=== PATIENT | female | born 1995 | race Caucasian/White ===

== ENCOUNTER 2019-09-18 16:49 | Emergency (ER) | payer OTHER ==
[~2019-09-18] VITALS: Ht 157.5 cm; Wt 81.6 kg
[2019-09-18 16:50] VITALS: BP 108/60
[2019-09-18] MEDS ORDERED: PREN29TA4 PO (17:00)
[2019-09-18] MEDS ORDERED: ACET-683 PO (17:00)
[2019-09-19] MEDS ORDERED: PERC5TAB12 PO (11:46)
== END 2019-09-18 18:43 | disposition left against medical advice (07) ==
LOC: M ED 16:49
DX: Z53.21 Procedure and treatment not carried out due to patient leaving prior to being seen by health care provider (principal)

== ENCOUNTER 2019-09-19 10:10 | Emergency (ER) | payer OTHER ==
[~2019-09-19] VITALS: Ht 157.5 cm; Wt 81.1 kg
[~2019-09-19 10:10] MED LIST: ACET-683 PO; PREN29TA4 PO
[2019-09-19] MEDS ORDERED: PERC5TAB12 PO (11:46)
[2019-09-19 11:49] VITALS: BP 124/59
== END 2019-09-19 11:50 | disposition home or self-care (01) ==
LOC: M ED 10:10
DX: K02.9 Dental caries, unspecified (principal); Z33.1 Pregnant state, incidental

== ENCOUNTER 2019-09-23 15:13 | Inpatient (IN) | payer OTHER ==
[~2019-09-23] VITALS: Ht 157.5 cm; Wt 82.0 kg
[~2019-09-23 15:13] MED LIST changes: +PERC5TAB12 PO
[2019-09-23 15:32] VITALS: BP 109/60
[2019-09-23] MEDS ORDERED: LACTATED RINGER'S 1000 ML IV STA (16:37)
[2019-09-23] MEDS ORDERED: miSOPROStol 25 MCG 1/4 TAB (S0191) PV ONE (16:45)
--- NOTE | 2019-09-23 16:56 | HPEPDOC ---
Obstetrical History & Physical General Date of Admission Sep 23, 2019 at 15:13 History of Present Illness S: Bree is a 23yo at 40+0wks gestation, EDC 23SEP2019 by LMP/1TUS. She presents to LND for scheduled elective IOL. She reports +FM and BH ctx, denies LOF/VB. She is here today with her spouse and denies any concerns today. complicated by excessive weight gain (40lbs). History of anxiety and PPD (no current meds). 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 pertinent history Past Medical History Medical History Overweight Surgical History: Denies/None Family History Significant Family History: No pertinent family hx Social History Marital Status: Family situation: Spouse/partner home Psychosocial History: Anxiety, Depression * Smoker: non-smoker Alcohol: Denies Drugs: denies Abuse Violence Screening Have you been hit/kicked/slapp: No Have you been sexually assault: No Imunizations Tdap status: current Influenza Status: current Allergies Coded Allergies: No Known Allergies (Verified Allergy, Unknown, 09/18/19) Medications Scheduled Acetaminophen (Acetaminophen) 500 Mg Tablet, 2 TAB PO Q6H for fever Prenat 115/Iron Fum/Folic/Dss ( 19 Tablet) 1 Each Tablet, 1 TAB PO DAILY Physical Examination Physical Examination GENERAL: Alert and oriented times three. BREAST: . ABDOMEN: Gravid and non-tender to touch. FETUS: Is vertex (VTX) by sterile vaginal examination and TAUS HEART RATE: Regular rate. LUNGS: Observed nonlabored breathing. EXTREMITIES: No edema. Vital Signs/I&O O: VSS, afebrile, normotensive FHR 130s, moderate variability, +accels, no decels CTX: none VE: FT/L/H, posterior Laboratory Data 24H LABS Laboratory Tests 2 09/23/19 15:21: Serology Scanned Report Hepatitis B Testing Pertinent Laboratoy Data Blood Type: B+ RBC Antibody Screen: Negative HIV: Negative Hepatitis B: Negative Rapid Plasma Reagin: Nonreactive Rubella: Immune Varicella: Immune Chlamydia/Gonorrhea: Negative Group B Streptococcus: Negative Cystic Fibrosis: Positive (spouse negative) Glucose Tolerance Test: 103 Anatomy Ultrasound Ultrasound Date: May 06, 2019 Placenta Location: Posterior Normal Anatomy: Yes Placenta Previa: No Vaginal Examination Presentation: Cephalic presentation Tocometer Contractions: No Assessment/Plan Assessment A: Bree is a 23yo at 40+0wks by LMP/1TUS. Her cervix is not favorable and she desires to not start IOL. She desires to wait until 41 weeks. Her status is reassuring and Category I FHT/reactive. Plan P: Counseled on risks/benefits of staying for IOL versus waiting until 41 weeks Pt to be discharged home with labor/danger/return precautions f/u at 41 weeks for PDIOL Will need to have COVID screen repeated prior to IOL WILLIAM STINSON CNM Sep 23, 2019 16:56
[2019-09-23 17:17] LABS: BASO % 0.5 % (0.0-1.0); EOS # 0.3 10^3/uL (0.0-0.5); EOS % 2.8 % (0.0-3.0); HEMATOCRIT 33.1 % (36.0-47.0); HEMOGLOBIN 11.5 g/dl (12.0-15.5); LYMPH # 1.9 10^3/uL (1.5-5.0); LYMPH % 21.3 % (24.0-44.0); MEAN CORPUSCULAR HEMOGLOBIN 29.6 pg (27.0-33.0); MEAN CORPUSCULAR HGB CONC 34.7 g/dl (32.0-36.5); MEAN CORPUSCULAR VOLUME 85.1 fl (80.0-96.0); MONO # 0.5 10^3/uL (0.0-0.8); MONO % 5.7 % (0.0-5.0); NEUTROPHILS # 6.1 10^3/uL (1.5-8.5); NEUTROPHILS % 69.1 % (36.0-66.0); PLATELET COUNT, AUTOMATED 216 10^3/uL (150-450); RED BLOOD COUNT 3.89 10^6/uL (4.00-5.40); WHITE BLOOD COUNT 8.8 10^3/uL (4.0-10.0)
[2019-09-23] MEDS ORDERED: miSOPROStol 50 MCG 1/2 TAB (S0191) PO SCH (20:45)
== END 2019-09-23 17:32 | disposition home or self-care (01) | DRG 833 ==
LOC: M LDI 15:13
PROVIDERS: ADMIT Registered Nurse Maternal Newborn; ATTEND Registered Nurse Maternal Newborn
DX: O48.0 Post-term pregnancy (principal); Z3A.40 40 weeks gestation of pregnancy

== ENCOUNTER 2019-09-26 00:31 | Inpatient (IN) | payer OTHER ==
[2019-09-26] VITALS (16 sets, daily range): BP systolic 90–117; BP diastolic 46–64
[~2019-09-26] VITALS: Ht 157.5 cm; Wt 82.7 kg
[2019-09-26] MEDS ORDERED: LACTATED RINGER'S 1000 ML IV STA (01:31)
[2019-09-26 02:54] LABS: BASO # 0.1 10^3/uL (0.0-0.2); BASO % 0.6 % (0.0-1.0); EOS # 0.4 10^3/uL (0.0-0.5); EOS % 3.3 % (0.0-3.0); HEMATOCRIT 32.9 % (36.0-47.0); LYMPH # 2.5 10^3/uL (1.5-5.0); LYMPH % 23.8 % (24.0-44.0); MEAN CORPUSCULAR HEMOGLOBIN 28.9 pg (27.0-33.0); MEAN CORPUSCULAR HGB CONC 33.4 g/dl (32.0-36.5); MEAN CORPUSCULAR VOLUME 86.4 fl (80.0-96.0); MONO # 0.6 10^3/uL (0.0-0.8); MONO % 5.4 % (0.0-5.0); NEUTROPHILS % 66.1 % (36.0-66.0); PLATELET COUNT, AUTOMATED 212 10^3/uL (150-450); RED BLOOD COUNT 3.81 10^6/uL (4.00-5.40); WHITE BLOOD COUNT 10.5 10^3/uL (4.0-10.0)
[2019-09-26] MEDS ORDERED: miSOPROStol 25 MCG 1/4 TAB (S0191) PO ONE (03:00)
--- NOTE | 2019-09-26 03:11 | HPEPDOC ---
Obstetrical History & Physical General Date of Admission Sep 26, 2019 at 01:37 History of Present Illness S: Bree is a 23yo at 40+3wks gestation, EDC 23SEP2019 by LMP/1TUS, who is being admitted for IOL d/t Category II FHT from late deceleration noted while she was in triage. She did report decreased FM, but fetus has been very active since her arrival to [facility]. She denies LOF/VB/CTX. 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 (spouse negative) OB History: 12/2016 - at 40wks, pelvis tested to 7lbs 8oz Chief Complaint: Induction of labor Information Provided By: Patient Age: 23 : 2 Term: 1 Pre-term: 0 Abortions: 0 Livin Care Care: Good Care Number of Visits: 9 Dating Final EDC: Sep 23, 2019 Final EDC for Daily Update: Sep 23, 2019 Final EDC by: LMP Antepartum Course Diagnos(e)s CF Carrier PPD/Anxiety Excessive Weight Gain Height (inches): 62 Pre- weight (lbs.): 140 Admission Weight (lbs.): 180 Change in Weight (lbs.): 40 Past Medical History Past Obstetrical History : Past Obstetrical History: Multigravida Type of Delivery: Spontaneous Vaginal Del. 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 Past Medical History Medical History Overweight Surgical History: Denies/None Family History Significant Family History: No pertinent family hx Social History Marital Status: Family situation: Spouse/partner home Psychosocial History: Anxiety, Depression * Smoker: non-smoker Alcohol: Denies Drugs: denies Abuse Violence Screening Have you been hit/kicked/slapp: No Have you been sexually assault: No Imunizations Tdap status: current Influenza Status: current Allergies Coded Allergies: No Known Allergies (Verified Allergy, Unknown, 09/18/19) Medications Scheduled Prenat 115/Iron Fum/Folic/Dss ( 19 Tablet) 1 Each Tablet, 1 TAB PO DAILY Physical Examination Physical Examination GENERAL: Alert and oriented times three. ABDOMEN: Gravid and non-tender to touch. FETUS: Is vertex (VTX) by sterile vaginal examination (SVE). HEART RATE: Regular rate. LUNGS: Observed nonlabored breathing. EXTREMITIES: No edema. Other physical findings O: VSS, afebrile, normotensive FHR 120s, moderate variability, + accels, few late decelerations (not repetitive) CTX by TOCO: present (pt denies feeling), irregular VE: FT/L/H, posterior Vital Signs/I&O Vital Signs Date Time Temp Pulse Resp B/P (MAP) Pulse Ox O2 Delivery O2 Flow Rate FiO2 09/26/19 00:47 97.9 88 16 108/56 (73) Laboratory Data 24H LABS Laboratory Tests 2 09/26/19 01:51: Serology Scanned Report Hepatitis B Testing 09/26/19 02:36: Immature Granulocyte % (Auto) 0.8, Neutrophils (%) (Auto) 66.1H, Lymphocytes (%) (Auto) 23.8L, Monocytes (%) (Auto) 5.4H, Eosinophils (%) (Auto) 3.3H, Basophils (%) (Auto) 0.6, Neutrophils # (Auto) 7.0, Lymphocytes # (Auto) 2.5, Monocytes # (Auto) 0.6, Eosinophils # (Auto) 0.4, Basophils # (Auto) 0.1, Nucleated Red Blood Cells % (auto) 0.0 CBC/BMP Laboratory Tests 09/26/19 02:36 Pertinent Laboratoy Data Blood Type: B+ RBC Antibody Screen: Negative HIV: Negative Hepatitis B: Negative Rapid Plasma Reagin: Nonreactive Rubella: Immune Varicella: Immune Chlamydia/Gonorrhea: Negative Group B Streptococcus: Negative Cystic Fibrosis: Positive (Spouse Negative) Glucose Tolerance Test: 103 Anatomy Ultrasound Ultrasound Date: May 06, 2019 Placenta Location: Posterior Normal Anatomy: Yes Placenta Previa: Yes Vaginal Examination Presentation: Cephalic presentation Assessment/Plan Assessment A: Bree is a 23yo at 40+3wks by LMP/1TUS, Category II FHT d/t few late decelerations, otherwise reassuring. GBS Negative, Blood Type B Positive. Plan P: Admit to LND, consent for IOL, labor, delivery, risk for C/S, pain management options. PIV start, admission labs drawn CEFM x2, can transition to intermittent monitoring with Category I FHT/Reactive Start IOL with 25mcg Buccal cytotec Plan to place CRB Anticipate Consult with OB as indicated. WILLIAM STINSON. [facility] Sep 26, 2019 03:11
[2019-09-26] MEDS ORDERED: miSOPROStol 50 MCG 1/2 TAB (S0191) PO SCH (07:00)
--- NOTE | 2019-09-26 07:38 | IPNPDOC ---
Text Note Date of Service The patient was seen on 09/26/19. NOTE 23yo at 40+3wks admitted for IOL for non reactive heart tracing while in triage. Her induction started with cytotec 25mcg vitals: normal nad fht: 135/mod palak/pos accel/no decel toco: ctx q 7mins a/p patient not in labor. continue with cytotec. arom and start pit as appropriate. Le, DO VS,Rupa, I+O VS, Fishbone, I+O Laboratory Tests 09/26/19 02:36 Vital Signs Date Time Temp Pulse Resp B/P (MAP) Pulse Ox O2 Delivery O2 Flow Rate FiO2 09/26/19 07:07 97.6 74 18 94/46 (62) I&O- Last 24 Hours up to 6 AM 09/26/19 05:59 Intake Total 1000 ml Balance 1000 ml BERNA PADILAL DO Sep 26, 2019 07:38
--- NOTE | 2019-09-26 15:02 | IPNPDOC ---
Text Note Date of Service The patient was seen on 09/26/19. NOTE patient feeling mild contractions vitals: normal nad fht: 128/mod palak/pos accel/periodic decel toco: ctx q 6-7mins ce: /-3, soft, posterior a/p patient not in labor. cordova bulb placed with 80cc of saline on cervical side. reassess once bulb comes out. Le, DO VS,Fishbone, I+O VS, Fishbone, I+O Laboratory Tests 09/26/19 02:36 Vital Signs Date Time Temp Pulse Resp B/P (MAP) Pulse Ox O2 Delivery O2 Flow Rate FiO2 09/26/19 07:07 97.6 74 18 94/46 (62) I&O- Last 24 Hours up to 6 AM 09/26/19 06:00 Intake Total 1000 ml Balance 1000 ml BERNA PADILLA DO Sep 26, 2019 15:01
[2019-09-26] MEDS ORDERED: PROMETHAZINE INJ 25 MG/ML VIAL (J2550) IV ONE (16:15)
[2019-09-26] MEDS ORDERED: MORPHINE 10 MG/ML 1ML VIAL (J2270) IV ONE (16:15)
[2019-09-26] MEDS ORDERED: MORPHINE 10 MG/ML 1ML VIAL (J2270) IM ONE (16:15)
[2019-09-26] MEDS ORDERED: OXYTOCIN 30 UNITS IN 0.9% NaCl 500ML IV BAG (J2590) As Ordered ONE (23:56)
--- NOTE | 2019-09-26 23:58 | IPNPDOC ---
Text Note Date of Service The patient was seen on 09/26/19. NOTE cordova bulb comes out around 2139. patient not feeling painful contractions. vitals: normal nad fht: 135/mod palak/pos accel/no decel toco: ctx q 6mins ce: 3-4/50/-4 a/p patient in latent labor. start pit. recheck 4-6hrs after having regular contractions. Le, DO VS,Fishbone, I+O VS, Fishbone, I+O Laboratory Tests 09/26/19 02:36 Vital Signs Date Time Temp Pulse Resp B/P (MAP) Pulse Ox O2 Delivery O2 Flow Rate FiO2 09/26/19 19:19 97.8 75 18 115/55 (75) Room Air I&O- Last 24 Hours up to 6 AM 09/26/19 05:59 Intake Total 1000 ml Balance 1000 ml BERNA PADILLA DO Sep 26, 2019 23:58
[2019-09-27] VITALS (51 sets, daily range): BP systolic 85–140; BP diastolic 47–83
[2019-09-27] MEDS ORDERED: OXYTOCIN DRIP 30 UNITS in IV 1 EA IV SCH ×2
[2019-09-27] MEDS ORDERED: FENTANYL 2MCG/ML ROPIVACAINE 0.2% IN 0.9% NACL 100ML IVBAG As Ordered ONE (05:38)
[2019-09-27] MEDS: ePHEDrine SULFATE 25 MG/5 ML(5MG/ML) SYRINGE IV PRN ×2 (07:27→07:39)
[2019-09-27] MEDS ORDERED: NALOXONE INJ 0.4MG/1ML VIAL (J2310 PER 1MG) IV PRN ×3 (07:30→10:24)
[2019-09-27] MEDS ORDERED: EPIDURAL COMMENT XX SCH (07:30)
[2019-09-27] MEDS ORDERED: REFRIGERATOR IV KEYS XX PRN (07:30)
[2019-09-27] MEDS ORDERED: diphenhydrAMINE 50MG/ML VIAL (J1200) IV PRN ×3 (07:30→11:30)
[2019-09-27] MEDS ORDERED: EPIDURAL/PCA KEYS XX PRN (07:30)
[2019-09-27] MEDS ORDERED: LACTATED RINGER'S 1000 ML IV PRN (07:30)
[2019-09-27] MEDS ORDERED: FENTANYL/ROPIVACAINE/NACL BAG 100 ML EPIDURAL SCH (07:30)
[2019-09-27] MEDS ORDERED: ONDANSETRON 4MG/2ML VIAL IV PRN ×3 (07:30→11:30)
[2019-09-27] MEDS ORDERED: ceFAZolin 2 GM/D5W 50 ML IV BAG (J0690 PER 500MG) As Ordered ONE (09:19)
[2019-09-27] MEDS ORDERED: ACETAMINOPHEN 650 MG SUPP As Ordered ONE (09:27)
[2019-09-27] MEDS ORDERED: BUPIVACAINE HCL 0.25% 10ML VIAL As Ordered ONE (09:27)
[2019-09-27] MEDS ORDERED: BICITRA 30ML SOLN UDC As Ordered ONE (09:27)
[2019-09-27] MEDS ORDERED: BICITRA 30ML SOLN UDC PO ONE (09:30)
[2019-09-27] MEDS ORDERED: AZITHROMYCIN INJ 500 MG, VIAL MATE ADAPTER 1 EACH in D5W 250 ML IV ONE (09:30)
[2019-09-27] MEDS ORDERED: ceFAZolin SOD 2 GM in IV 1 EA IV ONE (09:30)
[2019-09-27] MEDS ORDERED: ACETAMINOPHEN 650 MG SUPP PR ONE (09:45)
[2019-09-27] MEDS ORDERED: BUPIVACAINE HCL 0.25% 10ML VIAL SC ONE (09:45)
[2019-09-27] MEDS ORDERED: OXYTOCIN INJ 10 UNITS/ML VIAL (J2590) As Ordered ONE (10:03)
[2019-09-27] MEDS ORDERED: ONDANSETRON 4MG/2ML VIAL As Ordered ONE (10:03)
[2019-09-27] MEDS ORDERED: MORPHINE PRES-FREE INJ 10 MG/10 ML VIAL (J2274) As Ordered ONE (10:03)
[2019-09-27] MEDS ORDERED: LIDOCAINE 2% W/EPIN INJ 20ML **PRES FREE As Ordered ONE (10:03)
[2019-09-27] MEDS ORDERED: NALBUPHINE HCL 10 MG/ML AMP (J2300) IV PRN (10:24)
[2019-09-27] MEDS ORDERED: METOCLOPRAMIDE INJ 10MG/2ML VIAL (J2765 PER 1) IV PRN (10:24)
[2019-09-27] MEDS ORDERED: OXYTOCIN 30 UNITS IN 0.9% NaCl 500ML IV BAG (J2590) As Ordered ONE (11:08)
[2019-09-27 11:10] LABS: CORD GAS ABE A -2.1; CORD GAS ABE V -3.6; CORD GAS HCO3 A 26.3 MEQ/L; CORD GAS HCO3 V 22.1 MEQ/L; CORD GAS O2 SAT A 37.4 %; CORD GAS O2 SAT V 71.8 %; CORD GAS PCO2 A 59.3 mmHg; CORD GAS PCO2 V 42.4 mmHg; CORD GAS PH A 7.264 UNITS; CORD GAS PH V 7.335 UNITS; CORD GAS PO2 A 18.4 mmHg; CORD GAS PO2 V 30.3 mmHg; CORD GAS SBC A 21.1 MEQ/L; CORD GAS SBC V 20.8 MEQ/L; CORD GAS TCO2 A 28.1 MEQ/L; CORD GAS TCO2 V 23.4 MEQ/L
[2019-09-27] MEDS ORDERED: METHYLERGONOVINE MALEATE 0.2 MG TAB PO PRN (11:15)
[2019-09-27] MEDS ORDERED: ANUSOL HC CREAM 30GM TOP PRN (11:15)
[2019-09-27] MEDS ORDERED: OXYTOCIN INJ 10 UNITS/ML VIAL (J2590) IV ONE (11:15)
[2019-09-27] MEDS ORDERED: OXYTOCIN DRIP 30 UNITS in IV 1 EA IV ONE (11:15)
[2019-09-27] MEDS ORDERED: DOCUSATE SODIUM 100 MG CAP PO PRN (11:15)
[2019-09-27] MEDS ORDERED: MEASLES,MUMPS,RUBELLA VACCINE INJ (MMR-II) (90707) SC SCH (11:15)
[2019-09-27] MEDS ORDERED: ACETAMINOPHEN 500 MG TAB PO PRN (11:15)
[2019-09-27] MEDS ORDERED: RHOGAM 300 MCG (1500 IU) INJ (J2790) IM SCH (11:15)
[2019-09-27] MEDS ORDERED: MOM 30ML SUSPENSION UDC PO PRN (11:15)
[2019-09-27] MEDS ORDERED: KETOROLAC 30 MG/ML 1ML VIAL IV PRN (11:30)
[2019-09-27] MEDS ORDERED: fentaNYL 100 MCG/2 ML INJECTION (J3010) IV PRN (11:30)
[2019-09-27] MEDS ORDERED: oxyCODONE 5MG TAB PO PRN (11:30)
[2019-09-27] MEDS ORDERED: MEPERIDINE INJ 25 MG/ML VIAL (J2175) IV PRN (11:30)
[2019-09-27] MEDS ORDERED: HYDROMORPHONE HCL 0.5 MG/ 0.5 ML SYRINGE (J1170 PER 1) IV PRN (11:30)
[2019-09-27] MEDS ORDERED: KETOROLAC 30 MG/ML 1ML VIAL As Ordered ONE ×2 (12:10→12:19)
[2019-09-27] MEDS: KETOROLAC 30 MG/ML 1ML VIAL IV SCH ×3 (12:23→23:19)
--- NOTE | 2019-09-27 13:44 | IPN ---
DATE: 09/27/2019 This a 23-year-old 2, para 1 at 40 and 4 weeks of gestation was being admitted for induction of labor because of category II heart tracing with late decelerations while she was in triage in the office. She did report decreased movements. Baby was very active prior to her arrival. She has no loss of fluid and no contractions. On admission, she was on the monitor and she had initially a category one strip with reactivity. She was started with 25 mg of buccal Cytotec and this was September 25 at 3:11 p.m. At 7:30, she had a nonreactive heart rate tracing while in triage. At 1502, same day, heart was 128, moderate variability, some periodic decelerations. Contractions were about 6-7 minutes apart. Hernandez bulb was placed. At 2358, Hernandez bulb fell out. Again contractions were about 6 minutes, moderate variability, no decelerations were noted. She was started on Pitocin and had to be dialed back because of intermittent late decelerations with reasonable recovery. She is now 8 hours later, still having no occasional late decelerations. The Pitocin could not be increased to more than 2 milliunits per minute because of the intermittent late decelerations. On examination she was still 5 to 6. The baby was basically not in the pelvis. There was a small scant bulging of membranes. We elected to go ahead and do an AMANDA and she had a three quadrants total was 5.15, smallest pocket was 0.93. We discussed with the patient the option of (a) rupturing her membranes and should this develop into persistent late decelerations, emergency section would be entertained because she is remote from delivery with non-reassuring heart tones or we could electively go ahead and do a primary section again because of non-reassuring heart tones over a significant period of time without rupture of membranes under control environmental situations. The patient and expressed understanding of the procedure and the reasoning. We booked a primary section for non-reassuring heart tones and low amniotic fluid. Antibiotics will be instituted, appropriate measures and anesthesia and neonatology will be notified.
[2019-09-28] MEDS: PERCOCET 5MG/325MG TAB PO PRN ×4 (00:07→23:11)
[2019-09-28 02:00] VITALS: BP 112/59
[2019-09-28 06:00] VITALS: BP 104/55
[2019-09-28] MEDS: KETOROLAC 30 MG/ML 1ML VIAL IV SCH (06:24)
[2019-09-28 08:03] LABS: HEMATOCRIT 30.3 % (36.0-47.0); MEAN CORPUSCULAR VOLUME 87.8 fl (80.0-96.0); PLATELET COUNT, AUTOMATED 179 10^3/uL (150-450); RED BLOOD COUNT 3.45 10^6/uL (4.00-5.40); WHITE BLOOD COUNT 12.3 10^3/uL (4.0-10.0)
[2019-09-28] MEDS: PRENATAL VITAMINS CHEWABLE TABLET PO SCH (08:57)
--- NOTE | 2019-09-28 09:10 | IPN ---
DATE: 09/28/2019 and postoperative day #1. This lady is a 23-year-old, 2, now para 2, was admitted directly from the office because of decreased movement. She was postdates, had a nonreassuring heart tone, was remote from delivery and had oligohydramnios. She had a primary section, live male , 6 pounds 1 ounce, 2740 grams, scores of 9 and 9 and 1 and 5 minutes respectively. Arterial pH was 7.26, base excess -2.1, venous pH 7.33, base excess -3.6. On her first day, her blood pressure was 104/55, respirations 18, pulse 86, temperature 98.8. Her admitting hemoglobin 11.0, hematocrit 32.9 and platelets were 212. day #1 hemoglobin is pending. The rest of the examination is unremarkable. She is normocephalic, atraumatic. Neck full range of motion. Pupils equally reactive to light. Distal pulses are symmetric. No evidence of DVT, PE or superficial phlebitis. Chest is clear bilaterally to the bases. No wheezes or rhonchi. No CVA tenderness. Abdomen is soft, uterus two below, four quadrant bowel sounds are noted. Incision has an Optifoam, no bleeding through. She has no rashes, lesions or pruritus. No arthralgia or myalgia. No complaint of joint pain. No complaint of cough, wheeze, shortness of breath or dyspnea on exertion. No nausea, vomiting, diarrhea or constipation. She is passing gas, voiding well. Has not had a bowel movement yet. She is eating full diet. Plans of management are for discharge tomorrow. 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 2-week incision check at [facility] and 6-week check at [facility]. All questions were answered. We reviewed the procedure and the primary section reasons and we did disclose to the lady that she does not require repeat section if she wishes to have another and she had a two-layer closure on her uterine site. All questions were answered. 20-minute discussion.
[2019-09-28 10:00] VITALS: BP 107/54
[2019-09-28] MEDS: IBUPROFEN 800 MG TAB PO PRN ×2 (11:00→18:09)
[2019-09-28] MEDS ORDERED: IBUPROFEN 600MG TAB PO PRN (12:00)
[2019-09-28 14:00] VITALS: BP 112/53
[2019-09-28 18:00] VITALS: BP 113/54
[2019-09-28 22:00] VITALS: BP 96/50
[2019-09-29 02:00] VITALS: BP 87/52
[2019-09-29] MEDS: PERCOCET 5MG/325MG TAB PO PRN (05:39)
[2019-09-29 06:00] VITALS: BP 131/60
[2019-09-29] MEDS ORDERED: IBUP80TA PO (06:22)
[2019-09-29] MEDS ORDERED: PERCOCET PO (06:22)
[2019-09-29] MEDS ORDERED: DOCU100C16 PO (06:22)
[2019-09-29] MEDS: PRENATAL VITAMINS CHEWABLE TABLET PO SCH (07:59)
[2019-09-29] MEDS: IBUPROFEN 800 MG TAB PO PRN (09:12)
[2019-09-30] MEDS ORDERED: PERC5TAB12 PO (03:04)
[2019-09-30] MEDS ORDERED: IBUP1TAB7 PO (03:04)
[2019-09-30] MEDS ORDERED: PREN29TA4 PO (03:04)
[2019-09-30] MEDS ORDERED: LEVA1TAB2 PO (03:07)
[2019-09-30] MEDS ORDERED: AUGM500T34 PO (03:07)
--- NOTE | 2019-10-01 11:26 | RO ---
DATE OF PROCEDURE: 09/27/2019 PREOPERATIVE DIAGNOSES: Primary section, nonreassuring heart tones, remote from delivery, persistent late decelerations, oligohydramnios. POSTOPERATIVE DIAGNOSES: Primary section, nonreassuring heart tones, remote from delivery, persistent late decelerations, oligohydramnios. OPERATION PROPOSED: Primary section. OPERATION PERFORMED: Primary section. SURGEON: Elpidio Mcnamara MD LEGAL DOCUMENT SPECIALIST: Ana Forbes MD, for retraction, extraction, and visualization, without which the procedure could not be completed. ANESTHESIA: Epidural plus local anesthetic for intraperitoneal procedures. ESTIMATED BLOOD LOSS: 300 mL. DESCRIPTION OF PROCEDURE: After adequate anesthesia, prepped and draped in the supine position, Hernandez catheter in the bladder draining clear urine, acetaminophen suppository 1300 mg per rectum, sequentials in place, antibiotics appropriate, a Pfannenstiel incision was made two fingerbreadths above the symphysis pubis passing through abdominal layers, securing hemostasis. Opening peritoneal cavity, bladder reflected well down anteriorly. The Mobius was placed. The baby's head was quite high. A low transverse incision was made into the uterus. There was virtually no fluid there. We delivered a livebirth male infant weighing 6 pounds 1 ounce, 2740 grams. scores of 9 and 9 at 1 and 5 minutes, respectively. Arterial pH 7.26, base excess -2.1, venous pH 7.33, base excess -3.6. Three-vessels in the cord. The placenta was sent off to pathology, very calcified. The placenta was manually removed. The uterine cavity was swept out. The uterus contracted well under Pitocin. The lower segment was oversewn in the usual fashion in two layers. The second layer was imbricated. The peritoneum was replaced. Both tubes are normal to the fimbriated end. The Mobius was removed. The running stitch for the peritoneum, interrupted for fascia, Dexon for subcutaneous. Marcaine 0.25% 10 mL at the incisional site. Subcuticular placed, and an Optifoam was placed onto the incisional site.. The patient was sent to recovery in good condition. Edited 10/01/2019 aml
--- NOTE | 2019-10-01 13:36 | DSES ---
DATE OF ADMISSION: 09/26/2019 DATE OF DISCHARGE: 09/29/2019 This patient is a 23 old, 2, now para 2, admitted with history of post dates, non-reassuring heart tones, oligohydramnios and remote from delivery. Primary section, male, 6 pounds 1 ounce, 2740 grams, Apgars of 9 and 9 at one and five minutes respectively. Arterial pH 7.26, base excess -2.1; venous pH 7.33, base excess -3.6. On day two, her hemoglobin was 10.0, hematocrit 30.3 and platelets were 179. Her vital signs on discharge, blood pressure was 131/60, respirations 18, pulse 69 and temperature 97.2. We discussed phlebitis, cystitis, mastitis, endometritis, cellulitis; diet, exercise and pain management; perineal, breast and wound care. On examination, normocephalic, atraumatic. Neck: Full range of motion. Pupils equal and reactive to light. Distal pulses symmetric. No evidence of deep vein thrombosis (DVT), pulmonary embolism (PE) or superficial phlebitis. Chest is clear bilaterally at bases. No wheezes or rhonchi. No CVA tenderness. Abdomen soft, uterus two below. Lochia is moderate. Four quadrant bowel sounds. Incision is clean and dry. No rashes, lesions or pruritus. No arthralgia or myalgia. No complaint of joint pain. No complaint cough, wheeze, shortness of breath or dyspnea on exertion. No nausea or vomiting. No urgency or frequency. Voiding, passing gas and has had a bowel movement. 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 She has a 2-week incision check and a 6-week check at [facility]. All questions were answered. 20-minute discussion. The patient was discharged improved.
== END 2019-09-29 11:54 | disposition home or self-care (01) | DRG 772 ==
LOC: M LDO 00:31 → M LDI 01:37 → M OBS 09-27 12:33
PROVIDERS: ADMIT Registered Nurse Maternal Newborn; ATTEND Registered Nurse Maternal Newborn
PROC: 10D00Z1 Extraction of Products of Conception, Low, Open Approach (ICD-10-PCS; principal; 2019-09-27 10:00)
DX: O36.8130 Decreased fetal movements, third trimester, not applicable or unspecified (principal); O41.03X0 Oligohydramnios, third trimester, not applicable or unspecified; Z37.0 Single live birth; Z3A.40 40 weeks gestation of pregnancy; O26.00 Excessive weight gain in pregnancy, unspecified trimester; Z14.1 Cystic fibrosis carrier; O48.0 Post-term pregnancy

== ENCOUNTER 2019-09-30 00:02 | Emergency (ER) | payer OTHER ==
[~2019-09-30] VITALS: Ht 157.5 cm; Wt 85.3 kg
[~2019-09-30 00:02] MED LIST changes: +DOCU100C16 PO; +IBUP80TA PO; +PERCOCET PO
[2019-09-30 00:45] LABS: BASO # 0.1 10^3/uL (0.0-0.2); BASO % 0.5 % (0.0-1.0); EOS # 0.4 10^3/uL (0.0-0.5); EOS % 4.6 % (0.0-3.0); HEMATOCRIT 31.4 % (36.0-47.0); HEMOGLOBIN 10.4 g/dl (12.0-15.5); LYMPH # 2.8 10^3/uL (1.5-5.0); LYMPH % 29.9 % (24.0-44.0); MEAN CORPUSCULAR HEMOGLOBIN 29.1 pg (27.0-33.0); MEAN CORPUSCULAR HGB CONC 33.1 g/dl (32.0-36.5); MEAN CORPUSCULAR VOLUME 87.7 fl (80.0-96.0); MONO # 0.5 10^3/uL (0.0-0.8); MONO % 5.3 % (0.0-5.0); NEUTROPHILS # 5.6 10^3/uL (1.5-8.5); PLATELET COUNT, AUTOMATED 220 10^3/uL (150-450); RED BLOOD COUNT 3.58 10^6/uL (4.00-5.40); WHITE BLOOD COUNT 9.4 10^3/uL (4.0-10.0)
[2019-09-30 01:08] LABS: BLOOD UREA NITROGEN 3 MG/DL (7-18); CALCIUM LEVEL 8.3 MG/DL (8.5-10.1); CARBON DIOXIDE LEVEL 24 MEQ/L (21-32); CHLORIDE LEVEL 111 MEQ/L (98-107); CK-MB VALUE MASS 1.8 NG/ML (<3.6); CPK CREATINE PHOSPHOKINASE 170 U/L (26-192); GLOMERULAR FILTRATION RATE > 60.0 (>60); GLUCOSE, FASTING 87 MG/DL (70-100); MB/CK RELATIVE INDEX 1.06 (< OR =4); POTASSIUM SERUM 3.4 MEQ/L (3.5-5.1); SODIUM LEVEL 143 MEQ/L (136-145); TROPONIN I < 0.02 NG/ML (< 0.10)
[2019-09-30] MEDS ORDERED: ISOVUE-370 76% 100ML VIAL As Ordered ONE (01:27)
--- NOTE | 2019-09-30 01:59 | REPVR ---
PROCEDURE INFORMATION: Exam: CT Angiography Chest With Contrast Exam date and time: 09/30/2019 1:21 AM Age: 23 years old Clinical indication: Dyspnea; Patient HX: S/P ; Additional info: Dysp/hypox TECHNIQUE: Imaging protocol: Computed tomographic angiography of the chest with intravenous contrast. 3D rendering: MIP and/or 3D reconstructed images were created by the technologist. Radiation optimization: All CT scans at this facility use at least one of these dose optimization techniques: automated exposure control; mA and/or kV adjustment per patient size (includes targeted exams where dose is matched to clinical indication); or iterative reconstruction. Contrast material: ISO; Contrast volume: 75 ml; Contrast route: INTRAVENOUS (IV); COMPARISON: No relevant prior studies available. FINDINGS: Pulmonary arteries: No filling defects in the pulmonary arteries to suggest pulmonary emboli. Aorta: Unremarkable. No aortic aneurysm. No aortic dissection. Lungs: Couple small noncalcified pulmonary nodules, measuring up to 4 mm. Mild bibasilar dependent atelectasis and or infiltrate. Pleural space: Unremarkable. No pneumothorax. No pleural effusion. Heart: Unremarkable. No cardiomegaly. No pericardial effusion. Lymph nodes: Unremarkable. No enlarged lymph nodes. Liver: Enlarged low attenuating liver, evidence of hepatic steatosis. Bones/joints: Unremarkable. No acute fracture. Soft tissues: Unremarkable. IMPRESSION: 1. No filling defects in the pulmonary arteries to suggest pulmonary emboli. 2. Couple small noncalcified pulmonary nodules, measuring up to 4 mm. 3. Mild bibasilar dependent atelectasis and or infiltrate. COMMENTS: As per Fleischner Society guidelines for follow-up and management of pulmonary nodules: For patients at low risk (minimal or absent history of smoking and of other known risk factors), recommend follow-up chest CT at 12 months; if unchanged, no further follow-up. For patient at high risk (history of smoking or of other known risk factors), recommend initial follow-up chest CT at 6-12 months, then at 18-24 months if no interval change. Electronically signed by: Rocky Barillas On 09/30/2019 01:58:27 AM
[2019-09-30] MEDS ORDERED: PIPERACILLIN/TAZOBACTAM SOD 3.375 GM in D5W MINI-BAG PLUS 50 ML IV ONE (02:30)
[2019-09-30] MEDS ORDERED: IBUP1TAB7 PO (03:04)
[2019-09-30] MEDS ORDERED: PREN29TA4 PO (03:04)
[2019-09-30] MEDS ORDERED: PERC5TAB12 PO (03:04)
[2019-09-30] MEDS ORDERED: AUGM500T34 PO (03:07)
[2019-09-30] MEDS ORDERED: LEVA1TAB2 PO (03:07)
[2019-09-30] MEDS ORDERED: PERCOCET 5MG/325MG TAB As Ordered ONE (03:07)
[2019-09-30] MEDS ORDERED: PERCOCET 5MG/325MG TAB PO ONE (03:15)
[2019-09-30 03:21] VITALS: BP 126/78
--- NOTE | 2019-09-30 03:28 | CR.PDOC ---
General Date of Consultation: Sep 30, 2019 Consultation REASON FOR CONSULTATION/CHIEF COMPLAINT: Shortness of breath HISTORY OF PRESENT ILLNESS: Patient is 23 years old female without significant past medical history presented hospital with increased shortness of breath. Patient stated that today in the evening she developed shortness of breath. Patient had 3 days ago. For past 2 days patient developed dry cough. Patient was tested for COVID 19 , test was negative. Patient denied fever, chills, nausea, vomiting In ER patient was found to have no leukocytosis, hemoglobin 10.4, potassium 3.4, creatinine 0.5. CTA showed no pulmonary emboli Mild bibasilar dependent atelectasis and or infiltrate. ALLERGIES: Please see below. HOME MEDICATIONS: Please see below. PAST MEDICAL HISTORY: none PAST SURGICAL HISTORY: FAMILY HISTORY: I personally reviewed family history and found not pertinent SOCIAL HISTORY: Tobacco use: Stop smoking before ETOH: Negative Illicit drug use: Negative REVIEW OF SYSTEMS: 10 point review system negative except listed above PHYSICAL EXAMINATION: VITAL SIGNS: Please see below. GENERAL: awake, alert, NAD HEENT: NCAT, anicteric sclera, MIKA NECK: supple, no JVD CARDIOVASCULAR EXAMINATION: NS1S2, regular rate/rhythm RESPIRATORY EXAMINATION: Diminished lung sounds bilaterally ABDOMINAL EXAMINATION: positive bowel sounds x 4, NT EXTREMITIES: +2 pitting edema SKIN: warm, no rashes. NEUROLOGICAL EXAMINATION: AAO x 3, no motor/sensory deficits PSYCHIATRIC EXAMINATION: calm, normal affect LABORATORY DATA: Please see below. ASSESSMENT/PLAN: Patient is 23 years old female without significant past medical history presented hospital with increased shortness of breath. Patient stated that today in the evening she developed shortness of breath. Patient had 3 days ago. For past 2 days patient developed dry cough. Patient was tested for COVID 19 , test was negative. Patient denied fever, chills, nausea, vomiting In ER patient was found to have no leukocytosis, hemoglobin 10.4, potassium 3.4, creatinine 0.5. CTA showed no pulmonary emboli Mild bibasilar dependent atelectasis and or infiltrate. HAP There is concern for pneumonia superimposed with bilateral atelectasis Patient has cough, shortness of breath, ABG showed hypercarbia Patient doesn't have leukocytosis, she is normotensive, not tachycardic. CT showed possible bilateral lower infiltrates Augmentin 875 mg by mouth twice a day and levofloxacin 500 mg daily for 5 days Follow-up with PCP Incentive spirometry Patient stated that she wants to go home to take care of baby. Patient i nstructed to come back to ER if her symptoms worsen Hypokalemia By mouth potassium supplement Vital Signs/I&O Vital Signs Date Time Temp Pulse Resp B/P (MAP) Pulse Ox O2 Delivery O2 Flow Rate FiO2 09/30/19 03:09 18 97 Room Air 09/30/19 00:09 09/30/19 00:02 98.1 68 Laboratory Data Labs 24H Laboratory Tests 2 09/30/19 00:31: Immature Granulocyte % (Auto) 0.7, Neutrophils (%) (Auto) 59.0, Lymphocytes (%) (Auto) 29.9, Monocytes (%) (Auto) 5.3H, Eosinophils (%) (Auto) 4.6H, Basophils (%) (Auto) 0.5, Neutrophils # (Auto) 5.6, Lymphocytes # (Auto) 2.8, Monocytes # (Auto) 0.5, Eosinophils # (Auto) 0.4, Basophils # (Auto) 0.1, Nucleated Red Blood Cells % (auto) 0.0, Anion Gap 8, Glomerular Filtration Rate > 60.0, Calcium Level 8.3L, Total Creatine Kinase 170, Creatine Kinase MB 1.8, Creatine Kinase MB Relative Index 1.06, Troponin I < 0.02 09/30/19 00:56: POC pH (Misc Panel) 7.375, POC Base Excess (Misc Panel) -3.0L, POC Saturated Percent O2 (Misc) 91L, POC pO2 (Misc Panel) 63.0L, POC pCO2 (Misc Panel) 37.8, POC HCO3 (Misc Panel) 22.1, POC Total CO2 (Misc Panel) 23.0 CBC/BMP Laboratory Tests 09/30/19 00:31 Allergies Coded Allergies: No Known Allergies (Verified Allergy, Unknown, 09/18/19) Home Medications Scheduled Amoxicillin/Potassium Clav (Augmentin 500-125 Tablet) 1 Each Tablet, 500 MG PO Q8H, #20 Levofloxacin (Levaquin) 500 Mg Tablet, 500 MG PO DAILY for 7 Days, #7 Prenat 115/Iron Fum/Folic/Dss ( 19 Tablet) 1 Each Tablet, 1 TAB PO QHS, (Reported) Scheduled PRN Ibuprofen (Ibuprofen) 800 Mg Tablet, 800 MG PO Q8H PRN for PAIN, (Reported) Oxycodone HCl/Acetaminophen (Percocet 5-325 mg Tablet) 1 Each Tablet, 1 TAB PO Q4H PRN for PAIN, (Reported) ASHER JAMISON DO Sep 30, 2019 03:28
== END 2019-09-30 03:23 | disposition left against medical advice (07) ==
LOC: M ED 00:02
DX: J18.9 Pneumonia, unspecified organism (principal); R91.8 Other nonspecific abnormal finding of lung field; Z79.899 Other long term (current) drug therapy
CPT/HCPCS: 36600; 71275; 80048; 82550; 82553; 82803; 84484; 85025; 96374; 99284; J2543; Q9967

== ENCOUNTER → 2019-10-25 | Outpatient (REF) | payer OTHER ==
[~2019-10-25] MED LIST changes: +AUGM500T34 PO; +IBUP1TAB7 PO; +LEVA1TAB2 PO
== END ==
LOC: M SFHCLUC 15:31
PROVIDERS: ATTEND Nurse Practitioner Family
DX: N89.8 Other specified noninflammatory disorders of vagina (principal)

== ENCOUNTER → 2022-01-11 | Outpatient (REF) | LOC: M LAB 09:15 | PROVIDERS: ATTEND Nurse Practitioner Adult Health | DX: Z02.1 Encounter for pre-employment examination (principal) ==

== ENCOUNTER → 2022-05-21 | Outpatient (REF) | payer OTHER ==
[2022-05-21 23:03] LABS: GC DNA AMPLIFICATION NEGATIVE (NEGATIVE)
== END ==
LOC: M LAB REF 21:16
PROVIDERS: ATTEND Physician Assistant
DX: R30.0 Dysuria (principal)